=== PATIENT | male | born 1990 | race Caucasian/White ===

== ENCOUNTER 2017-04-03 01:30 | Emergency (ER) | payer SELFPAY ==
[~2017-04-03] VITALS: Ht 180.3 cm; Wt 100.0 kg
[2017-04-03] MEDS ORDERED: SODIUM CHLORIDE 0.9% 1,000 ML IV ONE (01:45)
[2017-04-03] MEDS ORDERED: ONDANSETRON HCL 4 MG/2 ML VIAL IVP ONE (01:45)
[2017-04-03 05:10] VITALS: BP 115/68
== END 2017-04-03 05:20 | disposition home or self-care (01) ==
LOC: EMS 01:33
DX: F10.129 Alcohol abuse with intoxication, unspecified (principal); Y90.9 Presence of alcohol in blood, level not specified
CPT/HCPCS: 96374; 99284; J2405; J7030